=== PATIENT | female | born 1960 | race African-American/Black ===

== ENCOUNTER 2016-08-03 21:15 | Emergency (ER) | payer BC, MEDICARE ==
[~2016-08-03] VITALS: Ht 170.2 cm; Wt 99.8 kg
[~2016-08-03 21:15] MED LIST: ASPIRIN81 MG ORAL; HUMALOG100 UNIT/3 SUBQ; LOPRESSOR HCT1 EAC3 ORAL; LOPRESSOR25 M1 ORAL; MIDODRINE HCL10 MG ORAL; OS-CAL1250 MG PO; RENVELA0.8 GM ORAL; SENSIPAR30 MG ORAL; SIMVASTATIN40 MG ORAL
[2016-08-03 21:16] VITALS: BP 156/141
[2016-08-03] MEDS ORDERED: Acetaminophen 500mg (ES) tab ORAL ONE (21:30)
--- NOTE | 2016-08-03 21:33 | Emergency Room Report ---
History of Present Illness General Chief Complaint: Altered Level of Consciousness Source: Patient Present Illness HPI This is a 56-year-old female with a history hypertension, renal failure on hemodialysis, Tuesday, , and Tuesday. She was sent in for altered mental status. She was finishing up dialysis he was confused with low blood pressure. She said she fell better now. This felt weak. Denies any chest pain. Denies any fever chills denies any nausea vomiting. No other complaint. Denies any cough. Allergies: Coded Allergies: ALPRAZOLAM (Verified Allergy, Intermediate, 02/19/16) HYDRALAZINE (Verified Allergy, Intermediate, 02/19/16) MORPHINE (Verified Allergy, Intermediate, 02/19/16) Patient History Past Medical History: see triage record, old chart reviewed, HTN, CAD, AFib, renal disease, dialysis Past Surgical History: other Pertinent Family History: none Social History: Denies: smoking Now: No Immunizations: other Reviewed Nursing Documentation: PMH: Agreed, PSxH: Agreed Nursing Documentation-PMH Hx Hypertension: Yes Hx Diabetes: Yes Hx Cancer: No Hx Dialysis: Yes - T,,S History Of Psychiatric Problem: Yes - DEPRESSION, ANXIETY Hx Neurological Problems: No Review of Systems Constitutional: Reports: weakness Eye: Denies: blurred vision, eye pain ENT: Denies: ear pain, nose congestion, throat swelling Respiratory: Denies: cough, shortness of breath Cardiovascular: Denies: chest pain, palpitations Gastrointestinal: Denies: abdominal pain, diarrhea, nausea, vomiting Musculoskeletal: Denies: back pain, joint pain Skin: Denies: rash Neurological: Denies: headache, numbness Endocrine: Denies: increased thirst, increased urine Hematologic/Lymphatic: Denies: easy bruising All Other Systems: negative except mentioned in HPI Physical Exam Vital Signs Date Time Temp Pulse Resp B/P Pulse Ox O2 Delivery O2 Flow Rate FiO2 08/03/16 21:04 90 18 128/63 97 Room Air vitals with fever Sp02 EP Interpretation: reviewed, normal General Appearance: well appearing, no apparent distress, alert, obese Head: normocephalic, atraumatic Eyes: bilateral eye EOMI, bilateral eye PERRL ENT: hearing grossly normal, normal pharynx Neck: full range of motion, supple, no meningismus Respiratory: chest non-tender, lungs clear, normal breath sounds Cardiovascular #1: regular rate, rhythm, no murmur Gastrointestinal: normal bowel sounds, non tender, no mass, no organomegaly, no bruit, non-distended Musculoskeletal: back normal, gait/station normal, normal range of motion Neurologic: alert, oriented x3 Psychiatric: mood/affect normal Skin: warm/dry, other - she felt hot to the touch Medical Decision Making Diagnostic Impression: Primary Impression: Altered level of consciousness Additional Impressions: ESRD (end stage renal disease) Fever Qualified Codes: R50.9 - Fever, unspecified Anemia of chronic disease ER Course Patient presents with initial hypotension but hypertensive here. She also has a fever. She said she felt better now. She is at increased risk for infection and deterioration. Recommend admission. Patient refused. She said she has an appointment at [facility] tomorrow morning to have her graft removed. Explained to her that there probably would not do it because of the fever. But she wants to go back to her car at the dialysis center. She refused any admission. She is competent to make that decision. Her graft site looks clean. No evidence infection there. This could be early influenza at the influenza test is negative. Chest x-ray is clear. We'll discharge home. Lab Results Impression labs unremarkable. EKG Diagnostic Results Rate: normal Rhythm: NSR ST Segments: no acute changes Rhythm Strip Diag. Results EP Interpretation: yes Rate: 80 Rhythm: NSR, no PVC's, no ectopy Chest X-Ray Diagnostic Results EP Interpretation: Yes Findings: no consolidation, no effusion, no pneumothorax, no acute cardiopulmonary disease Number of Views: 1 Last Vital Signs Date Time Temp Pulse Resp B/P Pulse Ox O2 Delivery O2 Flow Rate FiO2 08/03/16 21:04 90 18 128/63 97 Room Air Status: improved Disposition: HOME, SELF-CARE Condition: Stable Additional Instructions: You have a fever. This may be secondary to a serious infection. You at increased risk for severe illness. You should be admitted to the hospital. He became she mind, come back. Followup with your doctor tomorrow. Return if symptom worsen. FAVIO OBRIEN M.D. Aug 03, 2016 21:33
[2016-08-03 22:32] LABS: MEAN CORPUSCULAR HGB CONC 30.2 G/DL (32.0-36.0); MEAN CORPUSCULAR VOLUME 116 FL (80-99); MEAN PLATELET VOLUME 7.3 FL (6.5-10.1); PLATELET COUNT 95 K/UL (150-450); RED BLOOD COUNT 3.26 M/UL (4.20-5.40); WHITE BLOOD COUNT 6.6 K/UL (4.8-10.8)
[2016-08-03 22:33] LABS: BASOPHILS % (AUTO) 1.2 % (0.0-2.0); LYMPHOCYTES % (AUTO) 5.9 % (20.0-45.0); MONOCYTES % (AUTO) 10.5 % (1.0-10.0); NEUTROPHILS % (AUTO) 79.4 % (45.0-75.0)
[2016-08-03 22:37] LABS: PROTHROMBIN TIME 10.3 SEC (9.30-11.50)
[2016-08-03 22:46] LABS: TROPONIN I < 0.30 ng/mL (<=0.30)
[2016-08-03 23:00] LABS: ALANINE AMINOTRANSFERASE 9 U/L (3-33); ALBUMIN/GLOBULIN RATIO 1.2 (1.0-2.7); ANION GAP 19 (5-15); ASPARTATE AMINO TRANSFERASE 20 U/L (5-40); CALCIUM 8.3 mg/dL (8.6-10.2); CARBON DIOXIDE 26 mEQ/L (20-30); CHLORIDE 93 mEQ/L (98-107); CREATININE 5.9 mg/dL (0.5-0.9); GLOMERULAR FILTRATION RATE 8.8 mL/min (>60); HEMOLYSIS 63; POTASSIUM 4.2 mEQ/L (3.4-4.9); SODIUM 138 mEQ/L (135-145); TOTAL PROTEIN 7.7 g/dL (6.6-8.7)
[2016-08-03 23:10] LABS: CKMB < 1.5 ng/mL (< 3.8)
[2016-08-03 23:18] VITALS: BP 109/41
[2016-08-03 23:50] VITALS: BP 109/41
--- NOTE | 2016-08-04 11:36 | Diagnostic Imaging Report ---
Indication: Dyspnea Comparison: 02/19/16 A single view chest radiograph was obtained. Findings: Cardiomegaly is stable. There is a left permacath present. Extensive stenting of the outflow vein in the left upper extremity and axillary region noted. Lungs are clear. Impression: No acute cardiopulmonary abnormalities
--- NOTE | 2016-08-31 15:05 | Cardiology Report ---
APPROVED REPORT EKG Measurement Heart [id number] Normal sinus rhythm Left axis deviation Anterolateral infarct, age undetermined Abnormal ECG
== END 2016-08-04 00:30 | disposition home or self-care (01) ==
LOC: EDBD 21:15 → EMR 21:36
DX: R41.82 Altered mental status, unspecified (principal); N18.6 End stage renal disease; Z99.2 Dependence on renal dialysis; R50.9 Fever, unspecified; D63.1 Anemia in chronic kidney disease; I51.7 Cardiomegaly
CPT/HCPCS: 36415; 71010; 80053; 82550; 82553; 83605; 84484; 85025; 85610; 85730; 86710; 87040; 93005; 99283